=== PATIENT | female | born 1965 | race Caucasian/White ===

== ENCOUNTER 2018-11-04 18:02 | Inpatient (IN) ==
[2018-11-04 18:47] LABS: BASO# 0.38 X1000 (0.0-0.2); BASO% 1.2 % (0.0-0.8); EOS# 0.94 X1000 (0.0-0.7); EOS% 2.9 % (0.0-10.0); HEMATOCRIT 33.3 % (37.0-47.0); HEMOGLOBIN 10.7 g/dL (12.0-16.0); IMM GRAN# 2.53 X1000 (0.0-0.04); IMM GRAN% 7.8 % (0.0-0.5); LYMPH# 4.54 X1000 (1.2-3.4); LYMPH% 13.9 % (20.5-51.1); MCH 31.3 PG (27-31); MCHC 32.1 g/dL (33-37); MCV 97.4 FL (81-99); MONO# 2.34 X1000 (0.11-0.59); MONO% 7.2 % (1.7-9.3); MPV 10.8 FL (7.4-10.4); NEUT# 21.88 X1000 (1.4-6.5); PLT 246 X1000 (130-400); RBC 3.42 XMIL (4.2-5.4); WBC 32.61 X1000 (4.8-10.8)
--- NOTE | 2018-11-04 18:56 | Diag Imaging Result Doc PS360 ---
EXAM: CHEST-2 VIEWS 11/04/2018 HISTORY: fever TECHNIQUE: PA and lateral chest COMMENT: There is increased interstitial markings and coarse opacities bilaterally. This has not changed significantly since 10/20/2018. IMPRESSION: Stable chest. Electronically signed by Larry Cho 11/04/2018 6:53 PM
[2018-11-04 19:09] LABS: BANDS 10 % (0-1); EOS 2 % (1-10); LYMPHS 9 % (21-51); MONO 6 % (1-9); NRBC 2 % (0-0); SEGS 68 % (42-75)
[2018-11-04 19:10] LABS: ANISOCYTOSIS 2+
[2018-11-04 19:11] LABS: BURR CELLS OCCASIONAL; POIKILOCYTOSIS OCCASIONAL
[2018-11-04 19:20] LABS: ESTIMATED GFR > 60
[2018-11-04 19:27] LABS: AGAP 12; ALB/GLOB RATIO 0.8; ALBUMIN 2.5 g/dL (3.5-5.0); ALKALINE PHOSPHATASE 1177 U/L (32-104); AMYLASE 30 U/L (20-200); BUN 13 mg/dL (8-22); CALCIUM 7.2 mg/dL (8.8-10.2); CHLORIDE 104 mmol/L (98-107); COSMO 273; CREATININE 0.6 mg/dL (0.5-0.9); GLUCOSE 148 mg/dL (70-104); GOT 29 U/L (10-30); GPT 18 U/L (10-36); LIPASE 5 U/L (13-60); POTASSIUM 3.8 mmol/L (3.5-5.1); SODIUM 135 mmol/L (136-145); TCO2 19 mmol/L (25-35); TOTAL BILIRUBIN 0.69 mg/dL (0.20-1.00); TOTAL PROTEIN 5.6 g/dL (6.3-8.3)
--- NOTE | 2018-11-04 21:57 | Diag Imaging Result Doc PS360 ---
EXAM: CT THORAX/ABD/PELVIS W/CON 11/04/2018 HISTORY: FUO, leukocytosis TECHNIQUE: This exam was performed using automated exposure control, adjustment of mA or kV according to patient size, and/or use of iterative reconstruction technique. COMMENT: Thorax: This examination is compared with the previous study of 11/14/2017. There are increased interstitial markings present in the right lower lobe which are probably due to lymphangitic spread of carcinoma. The parahilar mass and the multiple peripheral nodules present in the right upper lobe at the time the previous study have considerably diminished. There are nodular opacities present in the right lower lobe which were either not present or are larger on the current study is technically in the posterior costophrenic sulcus medially where there is a pleural-based opacity measuring almost 2 cm. This was previously very small if present at all previously. The bronchi appear to be clear. There is less atelectasis in the lingula. There are extensive osseous metastases which are mostly osteoblastic within the thoracic spine the clavicles scapulae the humeri in the ribs. ABDOMEN: There are no previous abdominal studies available for comparison. In comparison with the visualized portions of the liver on the thoracic study of 11/14/2017 the degree and number of metastatic lesions in the liver has increased markedly. The spleen is larger measuring 11.6 cm in AP dimension compared to 9.4 cm. The adrenal glands are not enlarged. The gallbladder is not distended and is similar in appearance to the previous study. The aorta is not distended. The kidneys are without evidence of hydronephrosis or mass. There is some increased density in the mesenteric and retroperitoneal fat of uncertain significance. There is gas and stool in the colon. Small bowel is not particularly distended. There is extensive osteoblastic metastatic disease throughout the visualized skeleton. Pelvis: There is a large amount of free fluid in the pelvis. This has a CT density of 9 Hounsfield units. The urinary bladder is not distended. There is no evidence of appendicitis. There are some enhancing nodules present in the left ovary. These may be follicles however the possibility of implants cannot be excluded. There is extensive osteoblastic metastasis. IMPRESSION: Improved right upper lobe mass and postobstructive pneumonitis. Lymphangitic spread of carcinoma particularly in the right lower lobe. Increased metastatic nodules in the right lower lobe. Worsened hepatic metastatic disease. Extensive osseous metastatic disease which is worse than on 11/14/2017. Possible malignant ascites. Electronically signed by Larry Cho 11/04/2018 9:54 PM
[2018-11-04] MEDS ORDERED: VANCOMYCIN 1 GM/NS 1 GM/250 ML IVPB IV ONE (22:17)
[2018-11-04] MEDS ORDERED: ZOSYN 3.375 GM in NS 50 ML IV ONE (22:17)
--- NOTE | 2018-11-04 22:19 | PROVIDER DOCUMENTATION ---
This chart was entered by Juanita Middleton Scribe, acting as scribe for Armand Barrios MD. HPI-General Adult - General Chief Complaint: Fever Stated Complaint: FEVER/ACHES/CANCER PT Time Seen by Provider: 11/04/18 19:43 Source: patient Allergies/Adverse Reactions: Patient Allergies Allergy/AdvReac Type Severity Reaction Status Date / Time lorazepam [From Ativan] Allergy Unknown Verified 02/09/18 13:13 doxycycline AdvReac HEADACHE Verified 02/09/18 13:14 Home Medications: Home Medication List Medication Instructions Recorded Confirmed Last Taken Type Cetirizine HCl [Zyrtec] 10 mg PO DAILY 06/30/14 02/09/18 02/09/18 08:00 History Butalbital/APAP/Caffeine [Fioricet] 1 each PO Q4H PRN PRN 02/09/18 02/09/18 Unknown History Docusate Sodium [Colace] 100 mg PO DAILY 02/09/18 02/09/18 02/09/18 08:00 History Hydromorphone [Dilaudid] 2 mg PO Q2H PRN PRN 02/09/18 02/09/18 02/09/18 17:00 History 2 MG Rivaroxaban [Xarelto] 15 mg PO DAILY 02/09/18 02/09/18 02/09/18 08:00 History Trazodone [Desyrel] 100 mg PO QHS 02/09/18 02/09/18 02/09/18 21:00 History - History of Present Illness -Gen Adult Nature of Presenting Problems: 52 y/o female presents to ED with intermittent fever, low back pain, and headache onset 1 month ago. Pt reports highest temp of 103.7. Pt states she finished levaquin yesterday and that it was the 3rd or 4th antibiotic she has taken for her symptoms. Pt reports she has stage IV metastatic lung cancer. Pt states she had negative blood cultures last week. Pt is alert and oriented. Location of Pain/Injury: reports: back Pain Radiation: reports: no radiation Quality of Pain: reports: aching Severity: reports: mild Onset/Duration: reports: other (over 1 month ago) Timing: reports: still present Context/Activities at Onset: reports: none Modifying Factors: improves with: nothing Associated Symptoms: reports: back/neck pain (low back), fever/chills, headaches Similar Symptoms Previously?: No Recently seen or treated by another doctor?: No Review of Systems - Adult - REVIEW OF SYSTEMS - ADULT Constitutional: reports: fever. denies: chills Eyes: reports: no symptoms reported Ears, Nose, Mouth & Throat: reports: no symptoms reported Cardiovascular: denies: chest pain, palpitations Respiratory: denies: cough, shortness of breath Gastrointestinal: denies: abdominal pain, diarrhea, nausea, vomiting Genitourinary: reports: no symptoms reported Musculoskeletal: reports: back pain. denies: joint pain Integumentary: reports: no symptoms reported Neurological: reports: headache/migraines. denies: dizziness/vertigo, seizure Psychiatric: reports: no symptoms reported Endocrine: reports: no symptoms reported Hematologic/Lymphatic: reports: no symptoms reported Allergic/Immunologic: reports: no symptoms reported All Other Systems: Reviewed and Negative Past History - Adult - PAST MEDICAL HISTORY-ADULT Review of Records: reports: Old Records Reviewed, Nursing Assessment Review, Medications Reviewed Major Childhood Illnesses: reports: denies history Respiratory: reports: cancer Gastrointestinal: reports: cancer (liver), liver disease (cancer) Genitourinary: reports: cancer (kidney) Neurological: reports: cancer/tumor (spinal) - PRIOR SURGERIES/PROCEDURES Surgical/Procedure History: reports: none - IMMUNIZATION STATUS Childhood Immunizations: See Nurse Assessment Flu Vaccine: See Nurse Assessment - FAMILY HISTORY Family History: reviewed, not pertinent - SOCIAL HISTORY Smoking: non-smoker Substance Use: none/never Alcohol Use Frequency: occasionally Living Situation: family Physical Exam-General - PHYSICAL EXAM-ADULT Initial Vital Signs Reviewed: Yes - CONSTITUTIONAL General Appearance: appears well, alert, no apparent distress - EYES Eyes: PERRL/EOMI, pink conjunctivae - HEAD, EARS, NOSE, MOUTH & THROAT HENMT: normocephalic/atraumatic, moist mucous membranes, normal ENT inspection - RESPIRATORY Respiratory: chest non-tender, lungs clear, normal breath sounds - CARDIOVASCULAR Cardiovascular: normal peripheral pulses, regular rate, rhythm - GASTROINTESTINAL (ABDOMEN) Abdominal Exam: normal bowel sounds, soft, tenderness (mild epigastric) - MUSCULOSKELETAL Back Exam: normal inspection, no CVA tenderness Extremity: normal range of motion, non-tender, normal gait, no pedal edema - SKIN Integumentary: normal color, warm/dry - NEUROLOGIC Neurologic: grossly normal - PSYCHIATRIC Psych/Mental Status: normal mood/affect, normal thought content, normal thought process Progress - PLAN OF CARE/RESULTS Progress/Plan/Lab Results: Vital Signs - 8 hr 11/04/18 18:14 Temperature 98.5 F Pulse Rate 127 H Respiratory Rate 18 Blood Pressure 94/68 O2 Sat by Pulse Oximetry 96 Laboratory Results - last 24 hr 11/04/18 11/04/18 11/04/18 18:26 18:26 18:26 WBC 32.61 H RBC 3.42 L Hgb 10.7 L Hct 33.3 L MCV 97.4 MCH 31.3 H MCHC 32.1 L RDW Std Deviation 26.0 H Plt Count 246 MPV 10.8 H Immature Gran % (Auto) 7.8 H Neut % (Auto) 67.0 Lymph % (Auto) 13.9 L Fajardo % (Auto) 7.2 Eos % (Auto) 2.9 Baso % (Auto) 1.2 H Immature Gran # (Auto) 2.53 H Neut # (Auto) 21.88 H Lymph # (Auto) 4.54 H Fajardo # (Auto) 2.34 H Eos # (Auto) 0.94 H Baso # (Auto) 0.38 H Segmented Neutrophils 68 Band Neutrophils 10 H Lymphocytes 9 L Monocytes 6 Eosinophils 2 Metamyelocytes 4.0 Myelocytes 1.0 Nucleated RBCs 2 H Poikilocytosis OCCASIONAL Anisocytosis 2+ Anthony Cells OCCASIONAL Sodium 135 L Potassium 3.8 Chloride 104 Carbon Dioxide 19 L Anion Gap 12 BUN 13 Creatinine 0.6 Estimated GFR/1.73 m2 > 60 BUN/Creatinine Ratio 22 Glucose 148 H Calculated Osmolality 273 Calcium 7.2 L Total Bilirubin 0.69 AST 29 ALT 18 Alkaline Phosphatase 1177 H Total Protein 5.6 L Albumin 2.5 L Globulin 3.1 Albumin/Globulin Ratio 0.8 Amylase 30 Lipase 5 L Plasma Lactate 1.7 Orders Category Date Time Status CHEST-2 VIEWS [RAD] Stat Exams 11/04/18 18:[address] ABD/PELVIS W/IV CONT ONLY [CT] Stat Exams 11/04/18 20:[address] THORAX W/CONTRAST [CT] Stat Exams 11/04/18 20:05 Ordered AMYLASE [CHEM] Stat Lab 11/04/18 18:26 Completed BLOOD CULTURE [BLDCUL] Stat Lab 11/04/18 18:30 Ordered CBC WITH DIFF [HEME] Stat Lab 11/04/18 18:26 Completed COMPREHENSIVE METABOLIC PANEL [CHEM] Stat Lab 11/04/18 18:26 Completed LACTATE, PLASMA [CHEM] Stat Lab 11/04/18 18:26 Completed LIPASE [CHEM] Stat Lab 11/04/18 18:26 Completed LIPASE [CHEM] Stat Lab 11/04/18 20:05 Uncollected UA [URINALYSIS W/POSS RFLX CULT] [URINALYSIS] Stat Lab 11/04/18 18:24 Uncollected phos [PHOSPHORUS] [CHEM] Stat Lab 11/04/18 20:10 Uncollected Result Diagrams: 11/04/18 18:26 11/04/18 18:26 - XRAY 1 XRAY Study: Chest Impression: Normal ([facility] [address] , [address], [place] [address] Department of Imaging Patient: JAIME SALGADO Date: 11/04/18MR#: [id number] : 1965ADM Status: PRE ERAcct#: [id number] Age/Sex: 52/FRoom/Bed: Loc: ED Ordering Physician: Xavi Mcdowell MD Family Physician: Kassy Hackett MD Reason for Procedure: fever Signed EXAM: CHEST-2 VIEWS 11/04/2018 HISTORY: fever TECHNIQUE: PA and lateral chest COMMENT: There is increased interstitial markings and coarse opacities bilaterally. This has not changed significantly since 10/20/2018. IMPRESSION: Stable chest. Electronically signed by Larry Cho 11/04/2018 6:53 PM 11/04/18 881 Interpreting Physician: Larry Cho MD Dictated Date/Time: 11/04/181851 cc: Xavi Mcdowell MD; Kassy Hackett MD) - CT/MRI 1 CT Study: Abdomen, Pelvis, other (Chest) Impression: Abnormal ([facility] [address], [address], [place] [address] Department of Imaging Patient: JAIME SALGADO Date: 11/04/18#: [id number] : 1965ADM [facility] [id number] Age/Sex: 52/FRoom/Bed: Loc: ED Ordering Physician: Armand Barrios MD Family Physician: Kassy Hackett MD Reason for Procedure: FUO, leukocytosis Signed EXAM: CT THORAX/ABD/PELVIS W/CON 11/04/2018 HISTORY: FUO, leukocytosis TECHNIQUE: This exam was performed using automated exposure control, adjustment of mA or kV according to patient size, and/or use of iterative reconstruction technique. COMMENT: Thorax: This examination is compared with the previous study of 11/14/2017. There are increased interstitial markings present in the right lower lobe which are probably due to lymphangitic spread of carcinoma. The parahilar mass and the multiple peripheral nodules present in the right upper lobe at the time the previous study have considerably diminished. There are nodular opacities present in the right lower lobe which were either not present or are larger on the current study is technically in the posterior costophrenic sulcus medially where there is a pleural-based opacity measuring almost 2 cm. This was previously very small if present at all previously. The bronchi appear to be clear. There is less atelectasis in the lingula. There are extensive osseous metastases which are mostly osteoblastic within the thoracic spine the clavicles scapulae the humeri in the ribs. ABDOMEN: There are no previous abdominal studies available for comparison. In comparison with the visualized portions of the liver on the thoracic study of 11/14/2017 the degree and number of metastatic lesions in the liver has increased markedly. The spleen is larger measuring 11.6 cm in AP dimension compared to 9.4 cm. The adrenal glands are not enlarged. The gallbladder is not distended and is similar in appearance to the previous study. The aorta is not distended. The kidneys are without evidence of hydronephrosis or mass. There is some increased density in the mesenteric and retroperitoneal fat of uncertain significance. There is gas and stool in the colon. Small bowel is not particularly distended. There is extensive osteoblastic metastatic disease throughout the visualized skeleton. Pelvis: There is a large amount of free fluid in the pelvis. This has a CT density of 9 Hounsfield units. The urinary bladder is not distended. There is no evidence of appendicitis. There are some enhancing nodules present in the left ovary. These may be follicles however the possibility of implants cannot be excluded. There is extensive osteoblastic metastasis. IMPRESSION: Improved right upper lobe mass and po stobstructive pneumonitis. Lymphangitic spread of carcinoma particularly in the right lower lobe. Increased metastatic nodules in the right lower lobe. Worsened hepatic metastatic disease. Extensive osseous metastatic disease which is worse than on 11/14/2017. Possible malignant ascites. Electronically signed by Larry Cho 11/04/2018 9:54 PM 11/04/182153 Interpreting Physician: Larry Cho MD Dictated Date/Time: 11/04/182142 cc: Armand Barrios MD; Kassy Hackett MD) - CONSULTS/PCP/HOSPITALIST Notification #1 *Consult/PCP/Hospitalist*: Dr. García Time Discussed: 22:12 Reason/Comments: Leukocytosis, fever unknown origin, and metastatic lung cancer Consult Disposition: Admit Departure - Departure Date of Disposition Decision: 11/04/18 Time of Disposition Decision: 22:06 DIAGNOSIS: Fever, unknown origin Leukocytosis Qualifiers: Leukocytosis type: unspecified Qualified Code(s): D72.829 - Elevated white blood cell count, unspecified Metastatic primary lung cancer Qualifiers: Laterality: unspecified laterality Qualified Code(s): C34.90 - Malignant neoplasm of unspecified part of unspecified bronchus or lung Pneumonia Qualifiers: Pneumonia type: due to unspecified organism Laterality: right Lung location: lower lobe of lung Qualified Code(s): J18.1 - Lobar pneumonia, unspecified organism Disposition: ADMITTED INPATIENT 09 Certified Medical Emergency: Emergent Condition: Stable Referrals and Follow-Ups: Kassy Hackett MD [Primary Care Provider] - - Critical Care Note This patient required my direct & personal management of CC.: No Attestation - Physician/ OTILIA Attestation Patient care was provided by Advanced Practice Provider:: No The physician spent face to face time with patient:: Yes Advanced Practice Provider documentation review:: Supervising physician onsite and consulted in the evaluation and care of this patient. The physician did have a face to face encounter with the patient. This chart was documented by the indicated scribe, (Juanita Middleton, [place]) and accurately reflects the services I performed and decisions made by me, Armand Barrios MD, as attested by the provider's signature.
[2018-11-04] MEDS ORDERED: VANCOMYCIN IV PER PHARMACY MISC SCH (23:21)
[2018-11-04 23:26] LABS: URINE SOURCE CLEAN CATCH
[2018-11-04 23:31] LABS: BILIRUBIN URINE NEGATIVE (NEGATIVE); BLOOD URINE NEGATIVE (NEGATIVE); COLOR YELLOW; GLUCOSE URINE NEGATIVE (NEGATIVE); KETONE URINE TRACE mg/dL (NEGATIVE); LEUKOCYTES URINE TRACE (NEGATIVE); NITRITE URINE NEGATIVE (NEGATIVE); PH URINE 6.5; PROTEIN URINE 100 mg/dL (NEGATIVE); SP GRAVITY URINE 1.023; TURBIDITY URINE HAZY (CLEAR); UROBILINOGEN URINE 3 mg/dL (NORMAL)
[2018-11-04 23:32] LABS: UR EPITHELIAL CELLS >10 /HPF (<10); URINE BACTERIA 1+ /HPF
[2018-11-04] MEDS: ZOSYN 3.375 GM in NS 50 ML IV SCH (23:39)
[2018-11-04] MEDS ORDERED: BLISTEX MEDICATED BERRY LIP BALM TOP ONE (23:44)
--- NOTE | 2018-11-04 23:44 | HISTORY AND PHYSICAL ---
PRIMARY CARE PHYSICIAN: Dr. Watkins. CHIEF COMPLAINT: Fever and shortness of breath for about 4 weeks. HISTORY OF PRESENTING ILLNESS: A 52-year-old female with a history of metastatic lung cancer to liver and bone, hypercholesterolemia and pulmonary embolism, who presented to the emergency department with about 4 to 5-week history of having fever and shortness of breath. Apparently, she states that she was treated for pneumonia with different oral medicines; however, she did not have improvement. Patient states she is having recurring intermittent fever. She is supposed to have an outpatient evaluation by Infectious Disease; however, she states that her symptoms were worsening. Subsequently she had come to the emergency department. In the ED she was evaluated, and due to her presenting symptoms it was thought that she would require admission for further management. At the time of my examination, she denied any headache, visual changes, nausea, vomiting, diarrhea or chest pain, but complained of fevers, shortness of breath and not feeling well. PAST MEDICAL HISTORY: Includes pulmonary embolism, hypercholesterolemia, metastatic lung cancer. PAST SURGICAL HISTORY: Liver ablation, breast augmentation, tummy tuck. ALLERGIES: Doxycycline, heparin and Ativan. MEDICATIONS: Current medications as listed on the medication reconciliation sheet. SOCIAL HISTORY: No history of smoking. Admits to social alcohol use. Denies any illicit drug use. FAMILY HISTORY: No history of coronary disease. REVIEW OF SYSTEMS: Fourteen point review of systems is as listed in HPI. Other systems negative. PHYSICAL EXAMINATION: GENERAL: Cooperative, friendly female. She is resting comfortably now. VITAL SIGNS: Temperature 98.5 degrees, pulse 127, respiration 18, blood pressure 94/68. HEENT: Atraumatic, normocephalic. Extraocular movements intact. PERRLA. NECK: No masses. CHEST: Bibasilar rales. CARDIOVASCULAR: Regular rate and rhythm. ABDOMEN: Soft. Positive bowel sounds. EXTREMITIES: No edema. NEUROLOGIC: She is awake, alert and oriented x3. GENITOURINARY: No bladder distention. SKIN: Warm. LABORATORY DATA: WBC 32.61, hemoglobin 10.7, hematocrit 33.3, platelets 246,000. Sodium 135, potassium 3.8, chloride 104, CO2 is 19, BUN is 13, creatinine 0.6, glucose is 148. DIAGNOSTIC DATA: CT of the chest shows postobstructive pneumonitis. ASSESSMENT: A 52-year-old female with a history of metastatic lung cancer, pulmonary embolism and hypocholesterolemia, who presented to the emergency department with 4 to 5-week history of intermittent fevers. She apparently was treated outpatient for pneumonia; however, had not improved. She was evaluated in the emergency department, and due to her presenting symptoms she will require admission for further management and assessment. 1. Pneumonia, failed outpatient treatment. 2 Fever 2. History of pulmonary embolism. 3. Metastatic lung cancer. PLAN: 1. We will admit the patient to the medical floor with telemetry. 2. We will check blood cultures. Start the patient on IV antibiotics. 3. We will consult Infectious Disease. 4. We will continue the patient on her Xarelto for anticoagulation for PE. 5. We will consult her oncologist. 6. We will continue to follow and reassess, and make further recommendations based on the patient's clinical course. cc: Fazal García MD MTDD
[2018-11-05] MEDS ORDERED: VANCOMYCIN 1,950 MG in NS 500 ML IV ONE (01:00)
[2018-11-05] MEDS: ZOSYN 3.375 GM in NS 50 ML IV SCH (05:01)
[2018-11-05] MEDS: NEURONTIN PO SCH (09:14)
[2018-11-05] MEDS: LEVAQUIN PO SCH (09:21)
[2018-11-05] MEDS: MAXIPIME 2 GM in NS 100 ML IV SCH ×2 (11:11→20:34)
--- NOTE | 2018-11-05 12:59 | INFECTIOUS DISEASE CONSULT REP ---
DATE: 11/05/2018 CONCLUSION: Patient is admitted to the hospital with a right upper lobe postobstructive pneumonitis, which has improved since the patient had a CT scan on the 14 of November. RECOMMENDATIONS: The patient had been on Levaquin for a week and got better but then it was stopped and she got worse. I have restarted the Levaquin and also I agree with treating the patient with vancomycin. I have discontinued Zosyn because of the increased risk of nephrotoxicity when vancomycin and Zosyn are used together, and instead ordered cefepime in a dose of 2 g IV every 8 hours. DISCUSSION: The patient, for the past month, has had fever and intermittent nausea and vomiting. She has not felt short of breath and she has not coughed. She was started on Levaquin which she took for a week and her fever became less, but after it was stopped, it came back again. She came to the hospital and has been admitted and on CT scan, there shows improvement in the right upper lobe mass and postobstructive pneumonitis. Unfortunately, the lymphangitic spread of the carcinoma, particularly in the right lower lobe, has increased. Also, the hepatic metastatic disease and osseous metastatic disease are both worse than they were on the CT scan of November 14. In addition, there may be present malignant ascites. The patient's laboratory studies [place] [address], hemoglobin 10.7, and platelet count 246,000. Creatinine is 0.6. GFR is greater than 60. PAST MEDICAL HISTORY/REVIEW OF SYSTEMS: Eyes and ears: She does not have any trouble hearing or seeing. Neck: No stiffness. Respiratory: See present illness. Gastrointestinal: See present illness. Genitourinary: No dysuria or flank pain. Integument: No rashes. Bones, joints, muscles: No joint pain or muscle aching. She did earlier have back pain for which she received radiation therapy and it seemed to improve the pain. Neurologic: No seizures, no loss of motor or sensory function. CORRECTIONAL CORPORAL HISTORY: Patient is a 2, para 2, AB 0. PREVIOUS HOSPITALIZATIONS AND OPERATIONS: She has had labor and deliveries. She had a bronchoscopy at which time the diagnosis of lung cancer was made. She has also had placement of a right-sided Port-A-Cath. MEDICAL DISEASES: Positive for stage IV lung cancer. INFECTIOUS DISEASE HISTORY: Positive for pneumonia and UTI. FAMILY HISTORY: Positive for diabetes mellitus, stroke and cancer. SOCIAL HISTORY: [place] She is . ALLERGIES: She has an allergy to lorazepam and doxycycline. HOME MEDICATIONS: Include the followin. Fioricet. 2. Gabapentin. 3. Dilaudid. 4. Dilaudid. 5. Lorbrena. 6. Zofran. 7. Oxycodone. 8. Compazine. 9. Phenergan. 10. Xarelto. 11. Desyrel. PHYSICAL EXAMINATION: Vital Signs: Temperature is 98.2 degrees, pulse 101, respirations 20, blood pressure 111/69. The patient is 5 feet 8 inches tall, weighs 146 pounds. General: This is an ill-appearing, middle-aged female. She is in no acute distress. Head/eyes/ears/nose/throat: She can hear my spoken words and see near objects. There is no drainage coming from the nose or ears. She does not have any white patches in her mouth. Neck: No meningismus. Lungs: There were bilateral rales. Cardiovascular: Heart rate is regular. Thorax: Patient has a Port-A-Cath in place. The site is not erythematous, swollen, or tender. Abdomen: Soft and nontender. Extremities: There was only a trace of bilateral leg edema. There was no erythema. Neurologic: Patient is alert. She ambulates without difficulty. There is no tremor. Her sensation is intact to touch. Her memory as regarding her medical history is intact. Thank you for the consult. cc: Anderson Odell MD
[2018-11-05] MEDS: ZOFRAN IV PRN ×2 (14:29→19:47)
--- NOTE | 2018-11-05 15:26 | HEMO/ONC CONSULTATION ---
DATE: 11/05/2018 REFERRING PHYSICIAN: Dr. Fazal García. REASON FOR REFERRAL: Metastatic lung cancer, known to the service of Dr. Kassy Hackett. HISTORY OF PRESENT ILLNESS: Ms. Ronel Moffett is a very pleasant, 52-year-old woman with metastatic ALK positive lung cancer, on Lorbrena. She is known to Dr. Kassy Hackett. She has been seen outpatient with complaints of fevers in the evenings. Dr. Hackett did a workup as an outpatient and found no acute findings. She was started on Levaquin for 7 days. An appointment was set up outpatient with Dr. Odell for further workup as it was felt the fevers were infectious related. She completed the Levaquin on Friday of this week. She reports that yesterday on 11/04/2018 she spiked a fever of 102.7 degrees Fahrenheit. She reported to the ER for further workup. PAST MEDICAL HISTORY: 1. Metastatic ALK positive lung cancer. 2. Hypercholesterolemia. 3. Pulmonary embolism. PAST SURGICAL HISTORY: 1. Bilateral breast implants. 2. Bronchoscopy. 3. Tummy tuck. SOCIAL HISTORY: The patient denies smoking and she reports occasional alcohol use. Denies any illicit drug use. FAMILY HISTORY: Positive for bladder cancer and prostate cancer in her father. History of colon cancer in her sister. ALLERGIES: Doxycycline, Ativan, and heparin. MEDICATIONS: As per medication sheet. REVIEW OF SYSTEMS: As per HPI. Otherwise, a 12-point review of systems was negative. PHYSICAL EXAMINATION: General: The patient appears to be in no apparent distress. She is lying quietly in her hospital bed with her at bedside. Vital Signs: Blood pressure 111/69, pulse 101, respirations 20, temperature 98.2 degrees Fahrenheit, O2 saturation 96% on room air. LABORATORY DATA: Total white blood cell count 32.6, hemoglobin 10.7, hematocrit 33.3, platelet count 246,000. Sodium 135, potassium 3.8, chloride 104, CO2 19, BUN 13, creatinine 0.6, glucose 148. Urine culture is pending. Blood cultures pending. HEENT, head normocephalic, atraumatic. Mucosa is pink and moist. Pupils reactive to light. Oropharynx clear. Neck is supple. No lymphadenopathy or thyromegaly. Cardiovascular is S1, S2. Regular rate and rhythm. No murmurs noted. Respiratory breath sounds clear to auscultation bilaterally. No rhonchi, rales, or wheezing noted. Gastrointestinal is soft, nontender, nondistended. Positive for bowel sounds. Neurologic, normal gait. ASSESSMENT AND PLAN: 1. Metastatic ALK positive lung cancer. On Lorbrena. She is followed by Dr. Kassy Hackett in our clinic. We will plan to continue Lorbrena while she is in the hospital. 2. Fever. Suspect pneumonia. Infectious Disease has been consulted and is following. We will agree with Levaquin and cefepime as per infectious disease. 3. History of pulmonary embolism. We agree with continuing Xarelto. Thank you for this consult and allowing us to take part in the care of this patient. We will follow along with you. Further recommendations pending the patient's hospital course. cc: Cyril Urrutia MD
[2018-11-05] MEDS: VANCOMYCIN 1,450 MG in NS 250 ML IV SCH (15:30)
--- NOTE | 2018-11-05 15:52 | PROGRESS NOTE ---
DATE: 11/05/2018 SUBJECTIVE: Ms. Paz is a patient of Dr. Amber Watkins presented with fever and shortness of breath for about 4 weeks. A 52-year-old with history of metastatic lung cancer to liver and bone, hypercholesterolemia, pulmonary embolism, presented to the emergency room department with a 4 or 5 week history of having fever, shortness of breath. Apparently, she had been treated for pneumonia, was getting better. She was on Levaquin, but then after stopping the medications seemed to have recurrent intermittent fever. She was supposed to be evaluated outpatient infectious Disease, but symptoms worsened and came to the emergency room. The emergency room felt that she needed further treatment for pneumonia, possibly postobstructive pneumonia, with underlying metastatic lung cancer. She does feel a little better today. Breathing is about the same. OBJECTIVE: Vital Signs: Temp is 98.0, pulse 96, respirations 17, blood pressure 93/57, blood pressures range between 90 and 111/57 to 69. HEENT: Pupils are equal and round. Lungs: Lungs are clear anterolateral. Cardiovascular: Regular rhythm and rate without murmur or S3. Abdomen is soft. Skin is warm and dry. Urine output is 700 mL. LABORATORY: On presentation: White count elevated at 32,610 hematocrit 33, platelet count 246,000. Sodium 135, potassium 3.8, chloride 104, BUN 13, creatinine 0.6. Amylase 30, lipase 5. Urinalysis unremarkable. Her chest x-ray is stable chest. There are increased interstitial markings and coarse opacities bilaterally, but not changed from 10/20/2018. Her CT of abdomen and pelvis improved right upper lobe mass, postobstructive pneumonia, pneumonitis with lymphangitic spread of carcinoma, particular in the right lower lobe, increased metastatic nodules in the right lower lobe. Worsened hepatic metastatic disease. Extensive osseous some metastasis disease, which is worse than on the comparison on 11/14/2017 and possible malignant ascites. Stool was sent for Clostridium difficile today and it was negative. Urine culture and blood cultures are pending. ASSESSMENT AND PLAN: 1. Postobstructive pneumonia, failed outpatient treatment. Continue pulmonary toilet. She is on Levaquin 750 mg p.o. daily. She is on cefepime 2 g IV q.8 and vancomycin 14 50 mg IV q.12. 2. Metastatic lung cancer with bony liver involvement. 3. Nutrition looks good. 4. Review of her orders: I do not see any change. She does have leukocytosis. cc: Wei Ferrera MD MTDD
[2018-11-05] MEDS: PATIENT'S OWN MED PO SCH ×2 (16:31→16:33)
[2018-11-05] MEDS ORDERED: IMODIUM PO ONE (19:59)
[2018-11-05] MEDS: DESYREL PO SCH (20:12)
[2018-11-05] MEDS: QUESTRAN PO SCH (20:34)
[2018-11-05 20:43] LABS: BASO% 0.7 % (0.0-0.8); EOS# 0.76 X1000 (0.0-0.7); EOS% 2.7 % (0.0-10.0); HEMATOCRIT 28.8 % (37.0-47.0); HEMOGLOBIN 8.7 g/dL (12.0-16.0); IMM GRAN# 2.17 X1000 (0.0-0.04); IMM GRAN% 7.6 % (0.0-0.5); LYMPH% 10.2 % (20.5-51.1); MCH 30.6 PG (27-31); MCHC 30.2 g/dL (33-37); MCV 101.4 FL (81-99); MONO# 2.17 X1000 (0.11-0.59); MONO% 7.6 % (1.7-9.3); MPV 11.1 FL (7.4-10.4); NEUT# 20.29 X1000 (1.4-6.5); NEUT% 71.2 % (42.2-75.2); PLT 203 X1000 (130-400); RBC 2.84 XMIL (4.2-5.4); RDW 25.8 % (11.5-14.5); WBC 28.49 X1000 (4.8-10.8)
[2018-11-05 21:15] LABS: AGAP 8; BUN 12 mg/dL (8-22); CALCIUM 6.7 mg/dL (8.8-10.2); CHLORIDE 106 mmol/L (98-107); COSMO 274; CREATININE 0.5 mg/dL (0.5-0.9); ESTIMATED GFR > 60; GLUCOSE 109 mg/dL (70-104); POTASSIUM 3.3 mmol/L (3.5-5.1); SODIUM 137 mmol/L (136-145); TCO2 23 mmol/L (25-35)
[2018-11-05 21:21] LABS: ANISOCYTOSIS 2+; BANDS 7 % (0-1); LYMPHS 13 % (21-51); MONO 1 % (1-9); NRBC 2 % (0-0); POIKILOCYTOSIS 2+; SEGS 77 % (42-75)
[2018-11-05] MEDS ORDERED: CALCIUM GLUCONATE 1 GM in NS 50 ML IV ONE (22:32)
[2018-11-06] MEDS: ZOFRAN IV PRN ×5 (04:21→20:45)
[2018-11-06] MEDS: VANCOMYCIN 1,450 MG in NS 250 ML IV SCH ×2 (04:21→15:21)
[2018-11-06] MEDS: MAXIPIME 2 GM in NS 100 ML IV SCH ×3 (04:23→18:49)
[2018-11-06] MEDS: TYLENOL PO PRN ×3 (04:36→18:50)
[2018-11-06] MEDS: LEVAQUIN PO SCH (08:32)
[2018-11-06] MEDS: IMODIUM PO PRN ×2 (08:32→12:46)
[2018-11-06] MEDS: NEURONTIN PO SCH (08:33)
[2018-11-06] MEDS: PATIENT'S OWN MED PO SCH ×2 (08:34→21:07)
[2018-11-06] MEDS: QUESTRAN PO SCH ×2 (09:36→20:43)
[2018-11-06] MEDS ORDERED: MYLICON PO PRN (15:16)
[2018-11-06] MEDS: MYLICON PO PRN ×2 (15:21→16:52)
--- NOTE | 2018-11-06 16:29 | INFECTIOUS DISEASE PROGRESS NO ---
DATE: 11/06/2018 PRESENT ILLNESS: Ms. Moffett is being treated for right upper lobe postobstructive pneumonitis. She also has a gram-positive coccus growing in her urine, however the UTI is asymptomatic, and will not need treatment. MEDICATIONS: She is receiving cefepime 2 g IV every 8 hours, Levaquin 750 mg by mouth daily and vancomycin IV per pharmacy dosing. PHYSICAL EXAMINATION: Vital Signs: Temperature is 98 degrees, pulse rate 80, respiratory rate 14, blood pressure 97/60, O2 saturation is 94% on room air. General: This is a chronically ill- appearing middle-aged female. She is lying in bed currently in no acute distress. HEENT: Atraumatic, normocephalic. Oral mucous membranes are pink and moist. Conjunctivae are pale. Neck: Supple. Trachea is midline. Cardiovascular: Heart rate and rhythm are regular. Normal sinus rhythm on the monitor. Respiratory: Lung sounds are diminished bilaterally. No work of breathing is noted. Abdomen: Soft, round and mildly tender. Bowel sounds are active. Neurologic: She is awake, alert, oriented and able to move around in the bed independently. Integumentary: The right chest Port-a-Cath site is free of edema, erythema or drainage. LABORATORY AND X-RAY: None available today. ASSESSMENT AND PLAN: Ms. Moffett is being treated for a postobstructive pneumonitis which seems to be improving. She is receiving vancomycin, cefepime and Levaquin all of which we will continue at this time. There is an asymptomatic bacteriuria, which does not require treatment, however, it is most likely covered by vancomycin. These plans have been discussed with and recommended by Dr. Odell. COMORBIDITIES: Include metastatic lung cancer and history of pulmonary emboli. Dictated by GIUSEPPE Durna for Anderson Odell MD cc: Anderson Odell MD [facility]ITALLuis E
[2018-11-06] MEDS: XARELTO PO SCH (16:52)
--- NOTE | 2018-11-06 16:59 | PROGRESS NOTE ---
DATE: 11/06/2018 She is not having a good day does not feel good and having a lot of gas and some nausea. Asked if she could have some Phenergan. Her daughter was there. I think she is pretty discouraged today. Temperature 98.2 degrees, pulse 89, respirations 14, blood pressure 100/61. Pupils are equal and round. Lungs are clear in all lung salinas. Cardiovascular. Regular rhythm, rate without murmur or S3. Abdomen is soft. Skin is warm and dry. ASSESSMENT AND PLAN: 1. Right upper lobe postobstructive pneumonitis. She also has a gram-positive coccus growing in the urine, however urinary tract infection is asymptomatic so getting cefepime 2 g IV q.8 hours, Levaquin 750 mg p.o. by mouth and vancomycin dosing per pharmacy. 2. Metastatic ALK positive lung cancer on Lorbrena followed by Dr. Kassy Hackett. We will continue Lorbrena while she is in the hospital. 3. History of pulmonary embolism. She is continued on Xarelto and she has metastatic lung cancer. Her white count is still elevated from yesterday 28,000 so will check and see what her blood count is again tomorrow. I will go ahead and check a Chem 12 with magnesium and a followup chest x-ray in the morning. cc: Wei Ferrera MD
[2018-11-06] MEDS: PHENERGAN IV PRN (17:40)
[2018-11-06] MEDS: NS 1,000 ML IV SCH (17:50)
[2018-11-06] MEDS: DESYREL PO SCH (20:45)
[2018-11-07] MEDS: PHENERGAN IV PRN ×4 (03:07→21:15)
[2018-11-07] MEDS: VANCOMYCIN 1,450 MG in NS 250 ML IV SCH (03:07)
[2018-11-07] MEDS: TYLENOL PO PRN ×4 (03:07→21:15)
[2018-11-07] MEDS: NS 1,000 ML IV SCH ×2 (06:23→22:25)
[2018-11-07 07:15] LABS: BASO# 0.21 X1000 (0.0-0.2); BASO% 0.8 % (0.0-0.8); EOS# 1.26 X1000 (0.0-0.7); EOS% 4.5 % (0.0-10.0); HEMATOCRIT 25.6 % (37.0-47.0); HEMOGLOBIN 7.9 g/dL (12.0-16.0); IMM GRAN# 2.37 X1000 (0.0-0.04); IMM GRAN% 8.5 % (0.0-0.5); LYMPH# 3.79 X1000 (1.2-3.4); LYMPH% 13.7 % (20.5-51.1); MCH 30.6 PG (27-31); MCHC 30.9 g/dL (33-37); MCV 99.2 FL (81-99); MONO# 1.97 X1000 (0.11-0.59); MONO% 7.1 % (1.7-9.3); MPV 10.8 FL (7.4-10.4); NEUT# 18.16 X1000 (1.4-6.5); NEUT% 65.4 % (42.2-75.2); PLT 167 X1000 (130-400); RBC 2.58 XMIL (4.2-5.4); RDW 26.4 % (11.5-14.5); WBC 27.76 X1000 (4.8-10.8)
[2018-11-07 07:40] LABS: BANDS 14 % (0-1); EOS 2 % (1-10); LYMPHS 6 % (21-51); NRBC 1 % (0-0); SEGS 72 % (42-75)
[2018-11-07 07:41] LABS: ANISOCYTOSIS 2+
[2018-11-07 07:42] LABS: HYPOCHROM 1+; POIKILOCYTOSIS 2+
[2018-11-07 07:44] LABS: SCHISTOCYTES OCCASIONAL
[2018-11-07] MEDS: ZOFRAN IV PRN ×2 (08:19→22:24)
[2018-11-07] MEDS: MAXIPIME 2 GM in NS 100 ML IV SCH ×2 (08:19→16:44)
[2018-11-07] MEDS: MYLICON PO PRN ×3 (08:19→17:40)
[2018-11-07] MEDS: IMODIUM PO PRN (08:19)
[2018-11-07] MEDS: NEURONTIN PO SCH (08:20)
[2018-11-07] MEDS: LEVAQUIN PO SCH (08:20)
[2018-11-07] MEDS: QUESTRAN PO SCH ×3 (08:20→21:14)
[2018-11-07 08:27] LABS: AGAP 9; BUN 9 mg/dL (8-22); CHLORIDE 112 mmol/L (98-107); COSMO 281; CREATININE 0.5 mg/dL (0.5-0.9); ESTIMATED GFR > 60; GLUCOSE 80 mg/dL (70-104); POTASSIUM 3.3 mmol/L (3.5-5.1); SODIUM 142 mmol/L (136-145); TCO2 21 mmol/L (25-35)
[2018-11-07 08:28] LABS: ALB/GLOB RATIO 0.7; ALBUMIN 1.9 g/dL (3.5-5.0); ALKALINE PHOSPHATASE 848 U/L (32-104); GOT 23 U/L (10-30); GPT 10 U/L (10-36); MAGNESIUM 1.7 mg/dL (1.5-2.7); TOTAL BILIRUBIN 0.59 mg/dL (0.20-1.00); TOTAL PROTEIN 4.5 g/dL (6.3-8.3)
[2018-11-07 08:31] LABS: CALCIUM 6.5 mg/dL (8.8-10.2)
[2018-11-07] MEDS ORDERED: NS 1,000 ML IV SCH (09:00)
--- NOTE | 2018-11-07 10:29 | PROGRESS NOTE ---
DATE: 11/07/2018 ADDENDUM: Note, urine grew out enterococcus faecalis group D and it is sensitive to vancomycin, which she is already on. cc: Wei Ferrera MD
--- NOTE | 2018-11-07 10:41 | PROGRESS NOTE ---
DATE: 11/07/2018 SUBJECTIVE: Ms. Moffett had a little better night, her mouth does not feel as dry, the nausea is less intense. OBJECTIVE: Vitals: Temperature 97.7 degrees, pulse 90, respirations 16, blood pressure 98/61. HEENT: Pupils are equal and round. Lungs: Clear in all lung salinas. Cardiovascular: Regular rhythm and rate without murmur or S3. Abdomen: Soft. Skin: Warm and dry. URINE OUTPUT: 1700 mL. LABORATORY DATA: White count 27,760, hematocrit is 25, platelet count 167,000. This was from yesterday. Sodium 142, potassium 3.3, chloride 112, BUN 9, creatinine 0.5. Calcium 6.5, but her albumin is 1.9. ASSESSMENT AND PLAN: 1. Right upper lobe postobstructive pneumonitis. Continue cefepime at 2 g IV q.8h. She is on Levaquin 750 mg p.o. by mouth and vancomycin dosed per pharmacy. 2. Metastatic, ALK-positive lung cancer. She is on Lorbrena, followed by Dr. Kassy Steele. Continue. 3. History of pulmonary embolism. Continue her Xarelto. She has metastatic lung cancer. 4. Awaiting blood counts to come down. The nausea is better. I did hydrate her a little bit. She asked that we just give her IV fluids at night and not during the day. REVIEW OF ORDERS: She is on trazodone 100 mg at bedtime, and we will change her fluids, just get them at nighttime, normal saline at 85 mL an hour. Neurontin 300 mg a day. Levaquin 750 mg p.o. daily. cefepime 2 g IV q.8h. Oxycodone IR 10 mg q.8 hours p.r.n. Xarelto 20 mg a day. Simethicone chew 80 mg p.o. 4 times a day p.r.n. bloating. Vancomycin 1450 mg IV q.12h. cc: Wei Ferrera MD
[2018-11-07] MEDS: CULTURELLE PO SCH ×2 (11:44→21:14)
[2018-11-07] MEDS: NS 500 ML IV SCH (11:45)
--- NOTE | 2018-11-07 12:07 | Diag Imaging Result Doc PS360 ---
EXAM: CHEST-PORTABLE INDICATION: pneumonia TECHNIQUE: One view COMPARISON: 11/04/2018 FINDINGS: The right chest port is in stable position. Inspiration is suboptimal. There is stable elevation of the right hemidiaphragm. Coarse reticulonodular opacities, more prominent on the right are unchanged. No new consolidation is identified. There is no discrete pleural fluid collection or pneumothorax. The cardiac silhouette is stable. There are several known sclerotic metastases involving the proximal humeri bilaterally which are better appreciated on prior CTs. IMPRESSION: Stable chest. Electronically signed by Enzo Rockwell 11/07/2018 12:05 PM
[2018-11-07] MEDS: XARELTO PO SCH (16:45)
[2018-11-07] MEDS: OXY IR PO PRN (17:39)
[2018-11-07] MEDS: VANCOMYCIN 1,600 MG in NS 250 ML IV SCH (17:40)
[2018-11-07] MEDS: DESYREL PO SCH (21:21)
[2018-11-07] MEDS: PATIENT'S OWN MED PO SCH (22:26)
[2018-11-08] MEDS: OXY IR PO PRN ×3 (01:43→17:54)
[2018-11-08] MEDS: PHENERGAN IV PRN ×4 (01:44→20:07)
[2018-11-08] MEDS: MAXIPIME 2 GM in NS 100 ML IV SCH ×3 (02:03→16:13)
[2018-11-08] MEDS: TYLENOL PO PRN ×4 (03:13→22:30)
[2018-11-08] MEDS: VANCOMYCIN 1,600 MG in NS 250 ML IV SCH ×2 (04:54→17:54)
[2018-11-08 07:12] LABS: BASO# 0.14 X1000 (0.0-0.2); BASO% 0.6 % (0.0-0.8); EOS# 0.84 X1000 (0.0-0.7); EOS% 3.7 % (0.0-10.0); HEMATOCRIT 25.9 % (37.0-47.0); IMM GRAN# 1.57 X1000 (0.0-0.04); IMM GRAN% 6.9 % (0.0-0.5); LYMPH# 2.71 X1000 (1.2-3.4); MCH 30.4 PG (27-31); MCHC 30.9 g/dL (33-37); MCV 98.5 FL (81-99); MONO# 1.49 X1000 (0.11-0.59); MONO% 6.6 % (1.7-9.3); MPV 10.9 FL (7.4-10.4); NEUT# 15.91 X1000 (1.4-6.5); NEUT% 70.2 % (42.2-75.2); PLT 153 X1000 (130-400); RBC 2.63 XMIL (4.2-5.4); RDW 26.2 % (11.5-14.5); WBC 22.66 X1000 (4.8-10.8)
[2018-11-08] MEDS: SODIUM CHLORIDE 0.9% INJ PRN ×2 (07:29→16:13)
[2018-11-08 07:56] LABS: BANDS 22 % (0-1); LYMPHS 8 % (21-51); MONO 6 % (1-9); NRBC 2 % (0-0); SEGS 60 % (42-75)
[2018-11-08 07:57] LABS: ANISOCYTOSIS 2+; HYPOCHROM 1+; POIKILOCYTOSIS 2+; POLYCHROM 1+; SCHISTOCYTES OCCASIONAL
[2018-11-08] MEDS: LEVAQUIN PO SCH (09:29)
[2018-11-08] MEDS: NEURONTIN PO SCH (09:29)
[2018-11-08] MEDS: CULTURELLE PO SCH ×2 (09:29→20:07)
[2018-11-08] MEDS: MYLICON PO PRN (09:29)
[2018-11-08] MEDS: QUESTRAN PO SCH ×2 (09:31→20:07)
[2018-11-08] MEDS: NS 500 ML IV SCH (09:31)
[2018-11-08] MEDS: IMODIUM PO PRN (11:00)
[2018-11-08] MEDS: ZOFRAN IV PRN (12:29)
[2018-11-08] MEDS: FLEXERIL PO PRN (16:18)
--- NOTE | 2018-11-08 16:59 | PROGRESS NOTE ---
DATE: 11/08/2018 SUBJECTIVE: Ms Moffett is discouraged. She feels about the same. The nausea is not as intense. She is having some pain in her and lower back, which sounds more muscle spasm, irritation. OBJECTIVE: No fever, but temperature is 99.0 degrees, pulse 117, respirations 16, blood pressure 108/65. Pupils are equal and round. Lungs are clear in all lung salinas. Cardiovascular: Regular rhythm and rate without murmur or S3. Abdomen is soft. Skin is warm and dry. Urine output: 1100 mL. ASSESSMENT AND PLAN: 1. Right upper lobe postobstructive pneumonitis. She is on cefepime q.8 h., on Levaquin 750 mg p.o. by mouth and vancomycin per Pharmacy. 2. 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 On Lorbrena per Dr. Kassy Hackett. 3. History of pulmonary embolism. 4. History of metastatic lung cancer. 5. Awaiting blood counts to come down, and they are slowly coming down. White count 22,660, hematocrit is 25, platelet count 153,000. Sodium 142, potassium 3.3, chloride 112, BUN 9, creatinine 0.5. REVIEW OF HER ORDERS: I do not see any change. cc: Wei Ferrera MD
[2018-11-08] MEDS: XARELTO PO SCH (17:06)
--- NOTE | 2018-11-08 17:42 | INFECTIOUS DISEASE PROGRESS NO ---
DATE: 11/08/2018 PRESENT ILLNESS: The patient is being treated for a right upper lobe postobstructive pneumonitis. The patient also has an enterococcal urinary tract infection but this appears to be asymptomatic. MEDICATIONS: The patient is on now for 3 days the combination of cefepime, Levaquin and vancomycin. PHYSICAL EXAM: Vital signs: Temperature is 99 degrees, pulse 117, respirations 16, blood pressure 108/65. General: This is a chronically ill-appearing, middle-aged female. She does not appear to be in any acute distress. Head, eyes, ears, nose, and throat: She can hear my spoken words and see near objects. She does not have any white coating on her tongue. Thorax: Patient has a right-sided Port-A-Cath in place. The site is not swollen or red. Lungs: Clear to auscultation. Cardiovascular: Heart rate is regular. Abdomen: Soft and nontender. Neurologic: The patient is alert. She can move her extremities. There is no tremor. LAB AND X-RAY: CBC shows a white count of 22,660, hemoglobin 8, platelet count 153,000. Creatinine 0.5, GFR is greater than 60, alkaline phosphatase is 848. Stool for Clostridium difficile toxin is negative. Urine culture grew enterococcus. Chest x-ray shows coarse reticular nodular opacities in both lungs with the right lung being more prominent. There is no consolidation. Also seen on x-ray were multiple bone metastases. ASSESSMENT AND PLAN: The patient has metastatic lung cancer. There could possibly be a component of pneumonia involved in the right upper lobe. There was no evidence of pneumonia on the chest x- ray, so tomorrow I am going to get a non-contrasted CT scan of the chest to see if there is any evidence of a pneumonia present. COMORBIDITIES: Unfortunately, she has metastatic lung cancer and a history of pulmonary emboli. cc: Anderson Odell MD
[2018-11-08] MEDS: PATIENT'S OWN MED PO SCH (20:07)
[2018-11-08] MEDS: NS 1,000 ML IV SCH (20:07)
[2018-11-08] MEDS: DESYREL PO SCH (20:07)
[2018-11-09] MEDS: MAXIPIME 2 GM in NS 100 ML IV SCH ×3 (00:08→18:55)
[2018-11-09] MEDS: FLEXERIL PO PRN ×3 (00:19→19:11)
[2018-11-09] MEDS: OXY IR PO PRN ×3 (05:19→14:47)
[2018-11-09] MEDS: VANCOMYCIN 1,600 MG in NS 250 ML IV SCH ×2 (05:19→20:00)
[2018-11-09] MEDS: PHENERGAN IV PRN ×3 (05:20→18:57)
[2018-11-09] MEDS: IMODIUM PO PRN (05:26)
[2018-11-09] MEDS: TYLENOL PO PRN ×3 (05:49→18:57)
[2018-11-09 07:26] LABS: BASO# 0.24 X1000 (0.0-0.2); BASO% 0.8 % (0.0-0.8); EOS# 1.32 X1000 (0.0-0.7); EOS% 4.6 % (0.0-10.0); HEMATOCRIT 25.4 % (37.0-47.0); HEMOGLOBIN 7.8 g/dL (12.0-16.0); IMM GRAN# 2.12 X1000 (0.0-0.04); IMM GRAN% 7.3 % (0.0-0.5); LYMPH# 4.16 X1000 (1.2-3.4); LYMPH% 14.4 % (20.5-51.1); MCH 30.2 PG (27-31); MCHC 30.7 g/dL (33-37); MCV 98.4 FL (81-99); MONO# 2.02 X1000 (0.11-0.59); MPV 10.6 FL (7.4-10.4); NEUT# 19.02 X1000 (1.4-6.5); NEUT% 65.9 % (42.2-75.2); PLT 140 X1000 (130-400); RBC 2.58 XMIL (4.2-5.4); RDW 26.2 % (11.5-14.5); WBC 28.88 X1000 (4.8-10.8)
[2018-11-09 07:43] LABS: AGAP 12; ALB/GLOB RATIO 0.7; ALBUMIN 1.9 g/dL (3.5-5.0); ALKALINE PHOSPHATASE 740 U/L (32-104); BUN 14 mg/dL (8-22); CHLORIDE 108 mmol/L (98-107); COSMO 275; CREATININE 0.5 mg/dL (0.5-0.9); ESTIMATED GFR > 60; GLUCOSE 82 mg/dL (70-104); GOT 22 U/L (10-30); GPT 9 U/L (10-36); MAGNESIUM 1.5 mg/dL (1.5-2.7); SODIUM 138 mmol/L (136-145); TCO2 18 mmol/L (25-35); TOTAL BILIRUBIN 0.99 mg/dL (0.20-1.00); TOTAL PROTEIN 4.5 g/dL (6.3-8.3)
[2018-11-09 08:02] LABS: CALCIUM 6.1 mg/dL (8.8-10.2)
--- NOTE | 2018-11-09 08:37 | Diag Imaging Result Doc PS360 ---
CT THORAX W/O CONTRAST - 11/09/2018 INDICATION: pneumonia COMPARISON: 11/04/2018 FINDINGS: Stable right-sided chest port. Stable right hilar mass encasing and narrowing the vessels and airways. Stable lymphangitic pattern throughout the right lung. There is a small right pleural effusion which has increased minimally since prior. No other dense infiltrates. The left lung is fairly clear. Stable enlarged severely abnormal liver compatible with metastases. There is stable splenomegaly. There are dense sclerotic metastases all throughout the bones. IMPRESSION: Slight increase in the small right pleural effusion. Otherwise no change from prior. This exam was performed using automated exposure control, adjustment of mA or kV according to patient size, and/or use of iterative reconstruction technique Electronically signed by Tiago León 11/09/2018 8:34 AM
[2018-11-09 08:41] LABS: BANDS 12 % (0-1); EOS 2 % (1-10); LYMPHS 14 % (21-51); MONO 2 % (1-9); SEGS 64 % (42-75)
[2018-11-09 08:42] LABS: ANISOCYTOSIS 1+; HYPOCHROM 1+; POIKILOCYTOSIS 2+
[2018-11-09] MEDS: QUESTRAN PO SCH (08:47)
[2018-11-09] MEDS: LEVAQUIN PO SCH (08:54)
[2018-11-09] MEDS: NEURONTIN PO SCH (08:54)
[2018-11-09] MEDS: CULTURELLE PO SCH ×2 (08:54→21:17)
[2018-11-09] MEDS: MYLICON PO PRN (09:07)
[2018-11-09] MEDS: ZOFRAN IV PRN ×2 (14:47→21:32)
[2018-11-09] MEDS: NS 1,000 ML IV SCH (14:52)
[2018-11-09] MEDS: NS 500 ML IV SCH (14:52)
[2018-11-09] MEDS: XARELTO PO SCH (18:57)
--- NOTE | 2018-11-09 19:28 | INFECTIOUS DISEASE PROGRESS NO ---
DATE: 11/09/2018 PRESENT ILLNESS: Ms. Moffett is being treated for right upper lobe postobstructive pneumonitis which seems to have resolved at this point. Unfortunately, she continues to have a leukocytosis and fever. MEDICATIONS: She is on day 4 of cefepime 2 g IV every 8 hours, Levaquin 750 mg by mouth daily and IV vancomycin per pharmacy dosing. PHYSICAL EXAMINATION: Vital signs: Temperature is 100 degrees, pulse rate 120, respiratory rate 20, blood pressure 99/77, her O2 saturation is 98% on room air. General: This is a chronically ill-appearing, middle-aged female. She is lying in the bed currently drowsy and lethargic but arousable in no acute distress. HEENT: Atraumatic, normocephalic. Oral mucous membranes are pink and dry. Conjunctiva are pale. Neck: Supple. Trachea is midline. Cardiovascular: Heart rate and rhythm are regular and fast, sinus tach on the monitor. Respiratory: Lung sounds are clear to auscultation bilaterally. Abdomen: Soft, round and nontender. Bowel sounds are active. Neurologic: She is drowsy and lethargic, but arousable. Lying on her left lateral side. Able to move around in the bed independently. LABORATORY AND X-RAY: Today her white count is 28.88, hemoglobin 7.8, platelet count 140,000. Creatinine is 0.5. Estimated GFR is greater than 60. Total bilirubin is 0.99. AST 22, ALT [address] of the chest done today shows per reports similar to the last CT, but no mention of pneumonitis, and a slight increase in the small right pleural effusion. ASSESSMENT AND PLAN: Ms. Moffett has metastatic lung cancer which may have a component of pneumonia. The CT of the thorax today appears to have some improvement. Unfortunately, she continues to have a fever and an elevated white count, so at this time we will continue the vancomycin, cefepime and Levaquin as ordered. These plans have been discussed with and recommended by Dr. Odell. COMORBIDITIES: For Ms. Moffett include metastatic lung cancer and history of pulmonary emboli. Dictated by GIUSEPPE Duran for Anderson Odell MD cc: [facility]
[2018-11-09] MEDS: DESYREL PO SCH (21:17)
[2018-11-09] MEDS: PATIENT'S OWN MED PO SCH (21:18)
--- NOTE | 2018-11-09 21:42 | PROGRESS NOTE ---
DATE: 11/09/2018 SUBJECTIVE: Ms. Moffett still does not feel very good. Still with intermittent nausea. She is discussed with Dr. Kassy Hackett. She would like to pursue treatment at [facility]. Dr. Hackett is going to discuss with [facility] and see if we can arrange transfer. OBJECTIVE: Temp 98.8 degrees, pulse 110, respirations 20, blood pressure 105/67. Pupils are equal. Lungs are clear. Cardiovascular regular rhythm and rate without murmurs or S3. Abdomen soft. Skin is warm and dry. Chest CT on today: Slight increased small right pleural effusion, otherwise no change. ASSESSMENT AND PLAN: 1. Treated for right upper lobe postobstructive pneumonia. Seems to have resolved at this point. Unfortunately, continues to have leukocytosis. She is on day 4 of cefepime 2 g IV q.8 hours, Levaquin 750 mg p.o. daily, IV vancomycin pharmacy dosing. 2. Metastatic anaplastic lymphoma, kinase positive lung disease on Lorbrena per Dr. Kassy Hackett. Would like to pursue a treatment at [facility]. 3. History of pulmonary embolism. 4. History of metastatic lung cancer. 5. Still leukocytosis. Continue current orders. I do not see any changes. White blood cell count 28,880, hematocrit is 25, hemoglobin 7.8, platelet count 140,000. Electrolytes: Sodium 138, potassium 3.0, chloride 108, BUN 14, creatinine 0.5, calcium 6.1, but that is with an albumin of 1.9. cc: Wei Ferrera MD
[2018-11-09] MEDS ORDERED: NS 500 ML IV ONE (23:56)
[2018-11-10] MEDS: PHENERGAN IV PRN ×4 (00:09→23:53)
[2018-11-10] MEDS: MAXIPIME 2 GM in NS 100 ML IV SCH ×4 (00:09→23:28)
[2018-11-10] MEDS: NS 1,000 ML IV SCH ×2 (02:40→17:07)
[2018-11-10] MEDS: ZOFRAN IV PRN ×4 (04:43→21:44)
[2018-11-10] MEDS: TYLENOL PO PRN ×3 (04:44→23:53)
[2018-11-10] MEDS: FLEXERIL PO PRN ×2 (04:44→21:44)
[2018-11-10] MEDS: VANCOMYCIN 1,600 MG in NS 250 ML IV SCH (04:50)
[2018-11-10 07:12] LABS: BASO# 0.24 X1000 (0.0-0.2); EOS# 1.15 X1000 (0.0-0.7); EOS% 4.8 % (0.0-10.0); HEMATOCRIT 24.1 % (37.0-47.0); HEMOGLOBIN 7.1 g/dL (12.0-16.0); IMM GRAN# 1.79 X1000 (0.0-0.04); IMM GRAN% 7.4 % (0.0-0.5); LYMPH# 2.46 X1000 (1.2-3.4); LYMPH% 10.2 % (20.5-51.1); MCH 30.6 PG (27-31); MCHC 29.5 g/dL (33-37); MCV 103.9 FL (81-99); MONO# 1.63 X1000 (0.11-0.59); MONO% 6.8 % (1.7-9.3); NEUT# 16.83 X1000 (1.4-6.5); NEUT% 69.8 % (42.2-75.2); PLT 106 X1000 (130-400); RBC 2.32 XMIL (4.2-5.4); RDW 26.5 % (11.5-14.5)
[2018-11-10 07:37] LABS: BANDS 5 % (0-1); EOS 5 % (1-10); LYMPHS 3 % (21-51); MONO 3 % (1-9); SEGS 84 % (42-75)
[2018-11-10 07:38] LABS: ANISOCYTOSIS 1+
[2018-11-10 07:57] LABS: AGAP 11; BUN 12 mg/dL (8-22); CHLORIDE 110 mmol/L (98-107); COSMO 271; CREATININE 0.6 mg/dL (0.5-0.9); ESTIMATED GFR > 60; GLUCOSE 81 mg/dL (70-104); POTASSIUM 3.3 mmol/L (3.5-5.1); SODIUM 136 mmol/L (136-145); TCO2 15 mmol/L (25-35)
[2018-11-10] MEDS ORDERED: KLOR-CON PO ONE (08:05)
[2018-11-10] MEDS: NEURONTIN PO SCH (08:29)
[2018-11-10] MEDS: LEVAQUIN PO SCH (08:29)
[2018-11-10] MEDS: CULTURELLE PO SCH ×2 (08:29→21:16)
[2018-11-10 08:42] LABS: CALCIUM 5.5 mg/dL (8.8-10.2)
[2018-11-10] MEDS: MYLICON PO PRN (08:46)
[2018-11-10] MEDS: IMODIUM PO PRN (08:46)
[2018-11-10] MEDS ORDERED: CALCIUM GLUCONATE 1 GM in NS 50 ML IV ONE (09:15)
[2018-11-10] MEDS ORDERED: MBX SOLUTION MT PRN (12:05)
[2018-11-10] MEDS: SODIUM CHLORIDE 0.9% INJ PRN ×3 (12:23→23:53)
[2018-11-10] MEDS ORDERED: SODIUM CHLORIDE 0.9% 10 ML ONE (12:29)
[2018-11-10] MEDS ORDERED: PROTONIX PO ONE (13:08)
--- NOTE | 2018-11-10 14:00 | HEMO/ONC PROGRESS NOTE ---
DATE: 11/09/2018 SUBJECTIVE: Ms. Moffett is lying in her hospital bed. She has her and daughter at bedside. She reports that she feels no better than upon admission. OBJECTIVE: Vital Signs: Temperature 100 degrees, heart rate 120, respirations 20, blood pressure 99/77, O2 saturation 98% on room air. Cardiovascular: Tachycardia noted, but regular rhythm. Respiratory: Coarse breath sounds noted. Gastrointestinal: Abdomen is soft with positive bowel sounds. Extremities: Patient does have bilateral lower extremity edema. DIAGNOSTIC STUDIES: We will put white blood cells 28.8, hemoglobin 7.8, hematocrit 25.4, platelet count a 140,000. Sodium 138, potassium 3.0, chloride 108, CO2 of 18, BUN 14, creatinine 0.5, glucose 82. ASSESSMENT AND PLAN: 1. 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 Patient has been on Lorbrena since admission. She is wondering if maybe she could hold the medication, given that she is having some other symptoms, including swelling and nausea and diarrhea. While we do not think that the medication is causing these issues, it is also not helping to make these symptoms better. The side effects of Lorbrena do include nausea and diarrhea. For the time being, we will have the patient hold her medication. 2. Fever with leukocytosis. Her white blood cell count has come down some, but it is still above 25. Infectious Disease is on board. Repeat CT of the chest has been completed today. All cultures have thus far come back as negative. The family has requested looking into being transfer to [facility]. We are going to work to facilitate a transfer if there is a bed available. 3. Pain. Seems to be well managed currently. 4. Nausea. Patient is taking Zofran and Phenergan with good management. 5. Likely electrolyte imbalances. Continue to correct per the primary team. Dictated by ZEB Roman for Kassy Hackett MD cc: Kassy Hackett MD I have seen and examined the patient and agree with the above note which reflects my history, physical examination, assessment and plan. Kassy ADAMS
--- NOTE | 2018-11-10 15:41 | PROGRESS NOTE ---
DATE: 11/10/2018 SUBJECTIVE: The patient is sitting up in bed. She states that she does not feel that great today. She states she feels weak and her mouth is really dry. OBJECTIVE: Vital Signs: Temperature 98.9, blood pressure 101/64, heart rate 101, respirations 18. O2 sats 98% on room air. General: This is a chronically ill-appearing elderly female sitting at the edge of the bed in no acute distress. Heart: S1, S2 normal. Tachycardic. Lungs: Diminished breath sounds at the bases. No crackles. No wheezing. Abdomen: Positive bowel sounds. Soft, nontender, nondistended. Extremities: 1+ edema bilaterally. Neurologic: The patient is alert and oriented x 4. LABS: White blood cell count 24, hemoglobin 7.1, hematocrit 24, platelets 106,000. Sodium 136, potassium 3.3, chloride 110, CO2 15, BUN 12, creatinine 0.6, glucose 81, calcium 5.5, albumin 1.9. ASSESSMENT AND PLAN: 1. Metastatic lung cancer. Aware. Arrangements have been made by the oncologist to have the patient transferred to [facility]. We are waiting on a bed assignment. 2. Pneumonia. Continue with antibiotic therapy as directed by Dr. Odell. 3. Severe protein calorie malnutrition. Will consult with the dietitian. 4. Pulmonary embolism. Continue on Xarelto. 5. Leukocytosis. Slightly improved. Continue with antibiotic therapy. 6. Anemia. We will continue to monitor closely. We will defer to the oncologist regarding transfusion. 7. Thrombocytopenia. Will monitor this closely. 8. Hypocalcemia. Will replace the patient's calcium. 9. Hypokalemia. Will replace patient's potassium. 10. Metabolic acidosis. Will monitor closely. cc: Candida Muniz MD
--- NOTE | 2018-11-10 16:37 | INFECTIOUS DISEASE PROGRESS NO ---
DATE: 11/10/2018 PRESENT ILLNESS: The patient is being treated with antibiotics for a postobstructive pneumonitis. It appears that it is resolved. The patient was having a fever and leukocytosis. Since the patient has had antibiotics, gradually her white count and temperature are coming down. The patient is complaining of having an upset stomach and she thinks it is one of her antibiotics causing it. MEDICATIONS: This is the 5th day of treatment with the combination of cefepime, Levaquin and vancomycin. PHYSICAL EXAMINATION: Vital Signs: Temperature is 98.4 degrees, pulse 105, respirations 16, blood pressure 111/76. General: This is a chronically ill and malnourished-appearing, middle- aged female. She is in no acute distress. Head/eyes/ears/nose/throat: She can hear my spoken words and see near objects. She does not have any white patches on her tongue. Neck: She can move her head without having pain in her neck. Lungs: Clear to auscultation. Cardiovascular: Heart rate is regular. Abdomen: Soft and nontender. Thorax: The patient has a Port-A-Cath in place. The site is not erythematous or tender. Abdomen: Soft and not tender. Neurologic: The patient was sleeping but she woke up fully. She can move her extremities. She is able to ambulate. There is no tremor. LAB AND X-RAY: There is no new radiographic study today. Laboratory studies show a CBC with a white count down to 24,100, hemoglobin 7.1, and platelet count 106,000. Creatinine is 0.6. GFR is greater than 60. Urine grew out Enterococcus. ASSESSMENT AND PLAN: The patient has pneumonia, which appears to have cleared. She has urinary tract infection also. Her fever is coming down as is her elevated white count. I am going to continue vancomycin and cefepime and discontinue Levaquin in case the Levaquin is responsible for the patient's upset stomach. COMORBIDITIES: Patient has metastatic lung cancer and a history of pulmonary emboli. cc: Anderson Odell MD
[2018-11-10] MEDS: XARELTO PO SCH (17:13)
[2018-11-10] MEDS: NS 500 ML IV SCH (17:16)
[2018-11-10] MEDS ORDERED: MAGNESIUM SULFATE 2 GM/S.W.I. 2 GM/50 ML IVPB IV ONE (18:00)
--- NOTE | 2018-11-10 18:15 | HEMO/ONC PROGRESS NOTE ---
DATE: 11/10/2018 SUBJECTIVE: Ms. Moffett is lying in her hospital bed. She is in no acute distress at this time. OBJECTIVE: Vital signs: Temperature 98.9 degrees, heart rate 101, respirations 18, blood pressure 101/64, O2 saturation 98% on room air. Cardiovascular: Tachycardia noted. Respiratory: Coarse breath sounds noted. Gastrointestinal: Abdomen is distended. Extremities: Patient has bilateral extremity edema, pitting, +1 that seems improved since yesterday. LABS AND STUDIES: White blood cells today are 24.10, hemoglobin 7.1, hematocrit 24.1, platelet count 106,000. Sodium 136, potassium 3.3, chloride 110, CO2 15, BUN 12, creatinine 0.6, glucose is 81. ASSESSMENT AND PLAN: 1. 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 We are going to hold her Lorbrena for now. Dr. Hackett has contacted [facility] looking for an oncology bed and they are currently none available. Ms. Moffett is now on the waiting list to go ahead and be transferred down to [facility]. 2. Fever, leukocytosis. Management per Infectious Disease. She is on antibiotics per Dr. Odell. 3. Pain. Well managed currently. 4. Nausea. She will continue to receive IV Zofran and Phenergan. 5. Electrolyte imbalances. Continue to correct per the primary team. 6. Acid reflux type symptoms. Went ahead and started Protonix. 7. Dry mouth. We started Magic mouthwash to see if it will improve. Patient also reports that her mouth is sore. Dictated by ZEB Roman for Kassy Hackett MD cc: Kassy Hackett MD I have seen and examined the patient and agree with the above note which reflects my history, physical examination, assessment and plan. Kassy ADAMS
[2018-11-10] MEDS ORDERED: CALTRATE 600 + D PO SCH (21:00)
[2018-11-10] MEDS: DESYREL PO SCH (21:13)
[2018-11-10] MEDS: PATIENT'S OWN MED PO SCH (21:16)
[2018-11-10 23:43] VITALS: BP 111/65
[2018-11-11] MEDS ORDERED: PROTONIX PO SCH (07:00)
--- NOTE | 2018-11-23 20:00 | DISCHARGE SUMMARY ---
ADMISSION DATE: 11/04/2018 DISCHARGE DATE: 11/11/2018 FINAL DISCHARGE DIAGNOSES: 1. Metastatic lung cancer. 2. Pneumonia. 3. Severe protein-calorie malnutrition. 4. Pulmonary embolism on Xarelto. 5. Anemia of chronic disease. 6. Thrombocytopenia. 7. Leukocytosis. 8. Hypocalcemia. 9. Hypokalemia. 10. Metabolic acidosis. CONSULTATIONS: Oncology consultation with Dr. Hackett. HOSPITAL COURSE: Ms. Moffett is a 52-year-old female with a history of known metastatic lung cancer who presented to the ER with a chief complaint of fever and shortness of breath for about a month. A CT of the chest, abdomen, and pelvis was done on admission that revealed a postobstructive pneumonia and lymphangiectatic spread of the carcinoma and worsened hepatic metastatic disease as well as worsened osseous disease. The patient was admitted to the hospitalist service and Oncology and ID were consulted. The patient was started on broad-spectrum antibiotics. After discussion with the family, they opted to be transferred to [facility] for further treatment options. The arrangements were made to transfer the patient to [facility] by Dr. Kassy Hackett. On 11/10/2018, the patient was accepted for transfer to [facility]. cc: Candida Muniz MD
== END 2018-11-11 00:45 | disposition short-term general hospital (02) | DRG 840 ==
LOC: ED 18:02 → 3N 18:03 → SUATTDRO 18:03 → 3N 22:55
PROVIDERS: ATTEND Internal Medicine
CPT/HCPCS: 71010; 71020; 71045; 71046; 71250; 71260; 74177; 80048; 80053; 80202; 81001; 82150; 82306; 83605; 83690; 83735; 84100; 84132; 85025; 87040; 87077; 87088; 87186; 87324; 99285; A9270; J0610; J0692; J2405; J2543; J2550; J3370; J3475; J7030; J7040; J7050; Q9967